=== PATIENT | male | born 2000 | race Caucasian/White ===

== ENCOUNTER 2025-03-23 19:07 | Emergency (ER) | payer BC, MEDICAID ==
[~2025-03-23 19:07] MED LIST: NO HOME MEDS
== END 2025-03-23 19:43 | disposition left against medical advice (07) ==
LOC: ER 19:07
DX: R22.0 Localized swelling, mass and lump, head (principal); Z53.21 Procedure and treatment not carried out due to patient leaving prior to being seen by health care provider